=== PATIENT | female | born 1950 | race Caucasian/White ===

== ENCOUNTER → 2020-01-15 11:08 | Outpatient (CLI) | payer MEDICARE, OTHER, SELFPAY ==
--- NOTE | 2020-01-15 | DI.MRI.S_ITS ---
PROCEDURE: MR HEAD/BRAIN WO CON INDICATIONS: VERTIGO TECHNIQUE: Non-contrast axial T1 spin echo, axial T2 fast spin echo, sagittal and axial FLAIR, coronal T2 fast spin echo, axial gradient echo, axial diffusion and ADC through the brain. COMPARISON: None. FINDINGS: Image quality: Excellent. CSF spaces: Ventricles appear symmetric in size and shape. Basal cisterns are patent. No extra-axial fluid collections. Brain: No intracranial bleeds or mass effects. There is mild cerebral volume loss for age. There are mild periventricular and deep white matter chronic small vessel ischemic changes. Brainstem appears normal. Diffusion-weighted images show no acute ischemic insults. No chronic ischemic insults. Normal intravascular flow voids are present. Skull and face: Calvarial bone marrow is normal in signal. Orbits are normal. Sinuses: Sinuses and mastoids are clear. IMPRESSION: 1. No acute intracranial disease process. 2. Mild, diffuse cerebral volume loss. 3. Mild periventricular and subcortical white matter chronic microvascular ischemic change. 4. No areas of acute or chronic infarction. 5. No abnormal intracranial mass or mass effect. Dictated by: Una Thomson MD, PhD on 01/15/2020 at 11:51 Approved by: Una Thomson MD, PhD on 01/15/2020 at 11:54
== END ==
PROVIDERS: Family Provider Family Medicine; PCP Family Medicine; Referring Provider Family Medicine; Visit Provider Family Medicine
DX: R42 Dizziness and giddiness (principal)
CPT/HCPCS: 70551

== ENCOUNTER → 2021-03-15 08:28 | Outpatient (CLI) | payer MEDICARE, OTHER, SELFPAY ==
[2021-03-15 21:02] LABS: COVID19 - ORCAS (NP or Nasal) Negative (Negative)
== END ==
PROVIDERS: Family Provider Family Medicine; PCP Family Medicine; Visit Provider Physician Assistant
DX: Z20.822 Contact with and (suspected) exposure to COVID-19 (principal)
CPT/HCPCS: C9803; U0003

== ENCOUNTER → 2021-06-21 13:34 | Outpatient (CLI) | payer MEDICARE, OTHER, SELFPAY ==
[2021-06-21 18:47] LABS: Alanine Aminotransferase 14 IU/L (<35); Albumin 4.5 g/dL (3.5-5.0); Albumin Globulin Ratio 1.7 (1.0-2.8); Alkaline Phosphatase 59 U/L (38-126); Aspartate Aminotransferase 28 IU/L (14-36); Bilirubin Total 0.6 mg/dL (0.2-1.3); Blood Urea Nitrogen 13 mg/dL (7-17); Calcium 9.8 mg/dL (8.4-10.2); Carbon Dioxide 27 mmol/L (22-32); Chloride 99 mmol/L (98-107); Estimated Glomerular Filt Rate > 60.0 mL/min (>60); Globulin 2.7 g/dL (1.7-4.1); Glucose 130 mg/dL (80-110); HEMOLYSIS < 15 (0-50); Phosphorous 3.6 mg/dL (2.8-4.1); Potassium 4.2 mmol/L (3.4-5.1); Sodium 134 mmol/L (137-145); Total Protein 7.2 g/dL (6.3-8.2)
[2021-06-21 19:04] LABS: Vitamin D 25 Hydroxy (D3) 65.1 ng/mL (30.0-100.0)
[2021-06-21 19:19] LABS: Thyroid Stimulating Hormone 2.96 uIU/mL (0.47-4.68)
[2021-06-28 11:48] LABS: N-Telopeptide 5.2 nmol BCE/L (6.2-19.0)
== END ==
PROVIDERS: Family Provider Family Medicine; PCP Family Medicine
DX: M81.8 Other osteoporosis without current pathological fracture (principal)
CPT/HCPCS: 80053; 82306; 82523; 84100; 84443

== ENCOUNTER → 2021-10-05 14:23 | Outpatient (CLI) | payer MEDICARE, OTHER, SELFPAY ==
--- NOTE | 2021-10-05 | DI.US.S_ITS ---
PROCEDURE: US CAROTID DOPPLER BI INDICATIONS: Tinnitus, bilateral TECHNIQUE: Color and pulse Doppler interrogation was performed of both carotid systems, with image documentation and velocity measurements. COMPARISON: None. FINDINGS: Stenosis calculations are based on SRU (Society of Radi[employer] in Ultrasound) criteria. Right side: Brachial blood pressure: 110/65 mm Hg. Common carotid artery peak systolic velocity: 100 cm/sec. Internal carotid artery peak systolic velocity: 84 cm/sec. Internal carotid artery end diastolic velocity: 25 cm/sec. External carotid artery peak systolic velocity: 72 cm/sec. ICA/CCA peak systolic ratio: 0.84 . [place] scale imaging description: Minimal plaque. Widely patent vessels Percent internal carotid artery stenosis: None . Vertebral artery: Flow direction is antegrade. Left side: Brachial blood pressure: 117/70 mm Hg. Common carotid artery peak systolic velocity: 86 cm/sec. Internal carotid artery peak systolic velocity: 92 cm/sec. Internal carotid artery end diastolic velocity: 29 cm/sec. External carotid artery peak systolic velocity: 71 cm/sec. ICA/CCA peak systolic ratio: 1.07 . Redding scale imaging description: Minimal plaque Percent internal carotid artery stenosis: Widely patent vessels . Vertebral artery: Flow direction is antegrade. IMPRESSION: Negative carotid ultrasound for patient age. Minimal plaque. Widely patent vessels. Dictated by: Guilherme Nixon M.D. on 10/05/2021 at 17:04 Approved by: Guilherme Nixon M.D. on 10/05/2021 at 17:06
== END ==
PROVIDERS: Family Provider Family Medicine; PCP Physician Assistant Medical; Referring Provider Otolaryngology Facial Plastic Surgery; Visit Provider Otolaryngology Facial Plastic Surgery
DX: H93.13 Tinnitus, bilateral (principal)
CPT/HCPCS: 93880

== ENCOUNTER → 2022-03-29 10:56 | Outpatient (CLI) | payer MEDICARE, OTHER, SELFPAY ==
--- NOTE | 2022-03-29 11:27 | DI.RAD.S_ITS ---
PROCEDURE: XR HIP W PEL IF DONE LT 2V INDICATIONS: LEFT HIP PAIN TECHNIQUE: AP pelvis with lateral view(s) of the left hip(s). COMPARISON: None. FINDINGS: Bones: No fractures or dislocations. Pelvic ring appears intact. No suspicious bony lesions. Mild joint space narrowing and periarticular osteophyte formation at the bilateral hip joints. Soft tissues: The visualized bowel gas pattern is normal. No suspicious soft tissue calcifications. IMPRESSION: Hip osteoarthritis. No acute fracture. No osseous lesion. If symptoms and/or clinical suspicion for pathology persist, further assessment with repeat, or advanced imaging (e.g., CT, MRI, or bone scan) may be helpful for further assessment. Dictated by: Gris Cleveland M.D. on 03/29/2022 at 12:55 Approved by: Gris Cleveland M.D. on 03/29/2022 at 12:55
--- NOTE | 2022-03-29 11:27 | DI.RAD.S_ITS ---
PROCEDURE: XR LUMBAR SPINE MIN 4V INDICATIONS: LOW BACK PAIN TECHNIQUE: 5 views of the lumbar spine were acquired, including bilateral oblique views. COMPARISON: None. FINDINGS: Bones: 5 nonrib-bearing vertebrae are present. There is normal bony alignment. No vertebral body compression fractures. No suspicious bony lesions. Multilevel disc space narrowing and endplate osteophyte formation. Facet hypertrophy throughout the mid and lower lumbar spine. Soft tissues: Overlying bowel gas pattern is normal. No suspicious soft tissue calcifications. IMPRESSION: 1. Multilevel degenerative disc and facet disease. 2. No acute fracture. No osseous lesion. If symptoms and/or clinical suspicion for pathology persist, further assessment with repeat, or advanced imaging (e.g., CT, MRI, or bone scan) may be helpful for further assessment. Dictated by: Gris Cleveland M.D. on 03/29/2022 at 12:54 Approved by: Gris Cleveland M.D. on 03/29/2022 at 12:54
== END ==
PROVIDERS: Family Provider Family Medicine; PCP Family Medicine; Referring Provider Anesthesiology; Visit Provider Anesthesiology
DX: M51.36 Other intervertebral disc degeneration, lumbar region (principal); M54.17 Radiculopathy, lumbosacral region; M16.0 Bilateral primary osteoarthritis of hip; M54.50 Low back pain, unspecified; M25.552 Pain in left hip; R10.32 Left lower quadrant pain; G89.29 Other chronic pain
CPT/HCPCS: 72110; 73502; 99214

== ENCOUNTER → 2022-04-12 11:14 | Outpatient (CLI) | payer MEDICARE, OTHER, SELFPAY ==
--- NOTE | 2022-04-12 11:15 | DI.MRI.S_ITS ---
PROCEDURE: MR LUMBAR SPINE WO/W CON INDICATIONS: Lumbar radiculopathy, h/o ovarian cancer TECHNIQUE: Noncontrast sagittal T1 spin echo and T2 fast spin echo, sagittal STIR, axial T1 and T2 fast spin echo through the lumbar spine. In cases with scoliosis, additional coronal T2 fast spin echo may be performed. After the administration of contrast, sagittal and axial T1 spin echo with fat saturation through the lumbar spine. COMPARISON: [facility], CT, ABDOMEN/PELVIS WITH CONTRAST, 08/12/2014, 12:06. [facility], CR, XR LUMBAR SPINE MIN 4V, 03/29/2022, 11:34. FINDINGS: Image quality: This examination is limited by involuntary motion artifact. Alignment and curvature: There is minimal S shaped scoliotic curvature. Minimal anterolisthesis is seen at L5-S1. Marrow: Marrow is of normal overall signal. No acute vertebral body compression fractures. Within the superior lateral aspect of the T12 vertebral body, there is a focus seen that demonstrates decreased T1 weighted signal with increased T2 weighted/STIR signal and increased enhancement, as on series 10, image 6. This measures up to 1 cm. A similar appearing enhancing focus can be seen more posteriorly within the T12 vertebral body, as on series 10, image 7, measuring 7 mm. An apparent within the superior left aspect of the L3 vertebral body, there is a focus seen that demonstrates decreased T1 weighted signal with increased T2 weighted signal and increased STIR signal, with mild increased enhancement, as seen on series 5, image 14, measuring 6 mm. Within the superior aspect of the L4 vertebral body, there is Schmorl's node seen. Spinal cord: Conus medullaris terminates at the L1-L2 level. Visualized spinal cord demonstrates normal signal, without suspicious enhancement. Paraspinous soft tissues: No paravertebral masses or abnormal enhancement. T12-L1: No significant abnormality is seen. L1-L2: Mild loss of disc height is seen. Loss of disc signal is seen. Mild generalized disc bulge is seen. There is a superimposed central disc protrusion. No significant neural foraminal narrowing is seen. Minimal central canal narrowing is seen. L2-L3: Lxlk-eb-rmwiynnd loss of disc height and disc signal can be seen. Mild to moderate disc bulge is seen, with a mild central disc protrusion. There is giun-lq-[id number] right-sided and no significant left-sided neural foraminal narrowing. Mild central canal narrowing is seen. L3-L4: The disc height is well-preserved. Loss of disc signal is seen at this level. Mild generalized disc bulge is seen. Mild facet joint hypertrophy is seen. Fluid is seen within the facet joints themselves. No significant neural foraminal narrowing can be seen. No central canal narrowing. L4-L5: The disc height is well-preserved. Loss of disc signal is seen at this level. Mild to moderate disc bulge is seen, with a mild central disc protrusion. At least moderate facet hypertrophy is seen. Associated hypertrophy of the ligamentum flavum can be seen. Fluid is seen within the facet joints themselves. Mild bilateral neural foraminal narrowing is seen. Mild central canal narrowing is seen. L5-S1: The disc height is well-preserved. Loss of disc signal is seen at this level. No significant neural foraminal or central canal narrowing can be seen. IMPRESSION: Scattered foci of abnormal bone marrow signal enhancement can be seen, which are moderately suspicious for metastatic disease in this patient with this given history. Underlying degenerative changes are seen, which are likely age-appropriate. Dictated by: Alexis Worley M.D. on 04/12/2022 at 15:26 Approved by: Alexis Worley M.D. on 04/12/2022 at 15:33
== END ==
PROVIDERS: Family Provider Family Medicine; PCP Family Medicine; Referring Provider Anesthesiology; Visit Provider Anesthesiology
DX: M47.26 Other spondylosis with radiculopathy, lumbar region (principal); M89.9 Disorder of bone, unspecified; M54.50 Low back pain, unspecified; G89.29 Other chronic pain; Z85.43 Personal history of malignant neoplasm of ovary
CPT/HCPCS: 72158; A9579

== ENCOUNTER → 2022-05-23 10:51 | Outpatient (CLI) | payer MEDICARE, OTHER, SELFPAY ==
--- NOTE | 2022-05-23 10:53 | DI.NM.S_ITS ---
PROCEDURE: NM BONE SCAN WHOLE BODY RADIOPHARMACEUTICAL: 19.9 mCi Tc-99m MDP IV. INDICATIONS: Multiple scattered foci seen in bone marrow lumbar vertebrae TECHNIQUE: Delayed whole-body scintigrams were obtained approximately 3-4 hours after intravenous injection of radiotracer. Anterior and posterior views were acquired from vertex to feet. Additional left and right oblique views of the lower thoracic spine lumbar spine as well as the lower thoracic cage were obtained. COMPARISON: [facility], MR, MR LUMBAR SPINE WO/W CON, 04/12/2022, 11:21. [facility], CR, XR HIP W PEL IF DONE LT 2V, 03/29/2022, 11:34. [facility], CR, XR LUMBAR SPINE MIN 4V, 03/29/2022, 11:34. FINDINGS: Foci of increased activity in mandible is probably related to dental disease. No lesions are identified in sternum, clavicles, scapulae, ribs, bony pelvis, and visualized shafts of the long bones. There are foci of increased uptake in cervical, thoracic and lumbar spine most likely secondary to degenerative disc and facet disease; early metastasis to spine could be obscured by degenerative changes. There are foci of increased periarticular activity, compatible with degenerative/arthritic changes. IMPRESSION: No definitive metastatic disease is identified on bone scan. Dictated by: Luis Walter M.D. on 05/23/2022 at 17:51 Approved by: Luis Walter M.D. on 05/25/2022 at 10:57
== END ==
PROVIDERS: Family Provider Family Medicine; PCP Family Medicine; Referring Provider Obstetrics & Gynecology; Visit Provider Obstetrics & Gynecology
DX: R93.7 Abnormal findings on diagnostic imaging of other parts of musculoskeletal system (principal); M54.50 Low back pain, unspecified; G89.29 Other chronic pain; Z85.43 Personal history of malignant neoplasm of ovary
CPT/HCPCS: 78306; A9503

== ENCOUNTER → 2022-08-21 12:20 | Outpatient (CLI) | payer MEDICARE, OTHER, SELFPAY ==
--- NOTE | 2022-08-21 12:22 | DI.RAD.S_ITS ---
PROCEDURE: XR KNEE RT 3V INDICATIONS: Right knee pain, h/o meniscus repair TECHNIQUE: 3 views of the knee were acquired. COMPARISON: None. FINDINGS: Bones: Mild degenerative changes. No displaced fracture or dislocation. Soft tissues: No significant knee joint effusion. There is patellar enthesopathy. Lateral tilt of the patella, sometimes seen with maltracking. IMPRESSION: Mild degenerative changes without acute radiographic abnormality. Lateral tilt of the patella, sometimes seen with maltracking. If there is high concern for further derangement, consider MRI evaluation. Dictated by: Aung Moya M.D. on 08/21/2022 at 14:58 Approved by: Aung Moya M.D. on 08/21/2022 at 14:59
== END ==
PROVIDERS: Family Provider Family Medicine; PCP Family Medicine; Referring Provider Anesthesiology; Visit Provider Anesthesiology
DX: M25.561 Pain in right knee (principal); M54.50 Low back pain, unspecified
CPT/HCPCS: 73562; 99214

== ENCOUNTER → 2022-10-12 14:26 | Outpatient (CLI) | payer MEDICARE, OTHER, SELFPAY | PROVIDERS: Family Provider Family Medicine; PCP Family Medicine; Visit Provider Physician Assistant | DX: B35.1 Tinea unguium (principal) | CPT/HCPCS: 87077; 87102 ==

== ENCOUNTER → 2024-12-24 10:54 | Outpatient (CLI) | payer MEDICARE, OTHER, SELFPAY ==
[2024-12-24 19:22] LABS: Add Manual Diff / Slide Review NO; Hematocrit 37.0 % (36-46); Hemoglobin 12.9 g/dL (12.0-16.0); Lymphocytes Absolute Auto 1100 /uL (1100-4500); Mean Corpuscular HGB Conc 34.8 % (30-36); Mean Corpuscular Hemoglobin 31.6 PG (26-34); Mean Corpuscular Volume 90.8 fL (80-100); Platelet Count 209 X10^3/uL (150-400)
[2024-12-24 19:29] LABS: Blood Urea Nitrogen 15 mg/dL (7-17); Calcium 9.7 mg/dL (8.4-10.2); Carbon Dioxide 28 mmol/L (22-32); Chloride 99 mmol/L (98-107); Estimated Glomerular Filt Rate > 60 mL/min (>60); Glucose 84 mg/dL (70-99); HEMOLYSIS < 15 (0-50); Potassium 4.5 mmol/L (3.4-5.1); Sodium 134 mmol/L (137-145)
[2024-12-24 20:50] LABS: MRSA (Nasal) PCR NOT DETECTED (Not Detect)
== END ==
PROVIDERS: PCP Family Medicine; Visit Provider Orthopaedic Surgery
DX: Z01.818 Encounter for other preprocedural examination (principal); Z01.812 Encounter for preprocedural laboratory examination
CPT/HCPCS: 80048; 85025; 87797

== ENCOUNTER 2025-01-19 13:54 | Emergency (ER) | payer MEDICARE, OTHER, SELFPAY ==
[2025-01-19 14:36] VITALS: BP 172/86; PULSE 61; RESP 18; TEMP 36.7; O2SAT 100; BMI 20.7
--- NOTE | 2025-01-19 14:43 | EKG_ITS ---
[id number] [address] Test Date: 2025-01-19 Pat Name: Jaimie Rosario Department: Room: Gender: Female Shank Maker: COLLIN : 1950 Requested By: Order Number: [id number] Reading MD: Fletcher Regalado MD Measurements Intervals Slater Rate: 56 P: 76 MO: 148 QRS: 76 QRSD: 72 T: 62 QT: 428 QTc: 413 Interpretive Statements Sinus bradycardia Nonspecific ST abnormality Electronically Signed On 01-19-2025 16:59:29 PDT by Fletcher Regalado MD
[2025-01-19 15:09] LABS: Add Manual Diff / Slide Review NO; Hematocrit 37.8 % (36-46); Hemoglobin 12.9 g/dL (12.0-16.0); Lymphocytes Absolute Auto 1100 /uL (1100-4500); Mean Corpuscular HGB Conc 34.2 % (30-36); Mean Corpuscular Hemoglobin 30.9 PG (26-34); Mean Corpuscular Volume 90.5 fL (80-100); Platelet Count 211 X10^3/uL (150-400)
[2025-01-19 15:51] LABS: Alanine Aminotransferase 14 IU/L (<35); Albumin 4.7 g/dL (3.5-5.0); Albumin Globulin Ratio 1.5 (1.0-2.8); Alkaline Phosphatase 76 U/L (38-126); Blood Urea Nitrogen 10 mg/dL (7-17); Calcium 8.9 mg/dL (8.4-10.2); Carbon Dioxide 24 mmol/L (22-32); Chloride 99 mmol/L (98-107); Estimated Glomerular Filt Rate > 60 mL/min (>60); Globulin 3.1 g/dL (1.7-4.1); Glucose 99 mg/dL (70-99); HEMOLYSIS < 15 (0-50); Lipase 55 U/L (23-300); Potassium 4.2 mmol/L (3.4-5.1); Sodium 133 mmol/L (137-145); Total Protein 7.8 g/dL (6.3-8.2)
== END 2025-01-19 17:46 | disposition home or self-care (01) ==
PROVIDERS: Emergency Medicine; Emergency Provider Emergency Medicine; PCP Family Medicine
DX: R10.84 Generalized abdominal pain (principal)
CPT/HCPCS: 36415; 74018; 80053; 81002; 81003; 83690; 85025; 93005; 93010; 99283

== ENCOUNTER → 2025-01-27 13:57 | Outpatient (CLI) | payer MEDICARE, OTHER, SELFPAY ==
[2025-01-27 19:16] LABS: Add Manual Diff / Slide Review NO; Hematocrit 35.2 % (36-46); Hemoglobin 12.2 g/dL (12.0-16.0); Lymphocytes Absolute Auto 1100 /uL (1100-4500); Mean Corpuscular HGB Conc 34.6 % (30-36); Mean Corpuscular Hemoglobin 31.4 PG (26-34); Mean Corpuscular Volume 90.7 fL (80-100); Platelet Count 234 X10^3/uL (150-400)
[2025-01-27 19:45] LABS: Blood Urea Nitrogen 9 mg/dL (7-17); Calcium 9.2 mg/dL (8.4-10.2); Carbon Dioxide 25 mmol/L (22-32); Chloride 100 mmol/L (98-107); Estimated Glomerular Filt Rate > 60 mL/min (>60); Glucose 86 mg/dL (70-99); HEMOLYSIS < 15 (0-50); Potassium 4.4 mmol/L (3.4-5.1); Sodium 133 mmol/L (137-145)
== END ==
PROVIDERS: Orthopaedic Surgery; PCP Family Medicine; Visit Provider Physician Assistant
DX: Z01.818 Encounter for other preprocedural examination (principal); Z01.812 Encounter for preprocedural laboratory examination
CPT/HCPCS: 80048; 85025